=== PATIENT | female | born 1990 | race Caucasian/White ===

== ENCOUNTER 2018-05-27 12:07 | Emergency (ER) | payer MEDICAID ==
[~2018-05-27] VITALS: Ht 162.6 cm; Wt 58.4 kg
[2018-05-27 12:35] VITALS: BP 117/70
[2018-05-27] MEDS ORDERED: ACET1TAB12 PO (14:19)
[2018-05-27] MEDS ORDERED: CLIN300C85 PO (14:19)
== END 2018-05-27 15:10 | disposition home or self-care (01) ==
LOC: ER 12:08
DX: K08.89 Other specified disorders of teeth and supporting structures (principal); F17.200 Nicotine dependence, unspecified, uncomplicated; Z88.0 Allergy status to penicillin; Z88.5 Allergy status to narcotic agent; Z79.2 Long term (current) use of antibiotics; Z79.899 Other long term (current) drug therapy
CPT/HCPCS: 99283

== ENCOUNTER 2018-09-12 18:10 | Emergency (ER) | payer MEDICAID ==
[~2018-09-12] VITALS: Ht 165.1 cm; Wt 60.3 kg
[~2018-09-12 18:10] MED LIST: ACET1TAB12 PO; CLIN300C85 PO
[2018-09-12 18:37] VITALS: BP 119/75
[2018-09-12 19:16] LABS: CLARITY,URINE CLEAR (Clear); COLOR,URINE YELLOW (Yellow); GLUCOSE, URINE NEGATIVE (Neg); KETONES,URINE NEGATIVE (Neg); LEUKOCYTE ESTERASE ,URINE NEGATIVE (Neg); NITRITES, URINE NEGATIVE (Neg); OCCULT BLOOD,URINE NEGATIVE (Neg); PROTEIN,URINE NEGATIVE (Neg); UROBILINOGEN,URINE 0.2 E.U/dL (0.2-1.0)
[2018-09-12 19:17] LABS: URINE HCG NEGATIVE (NEG)
[2018-09-12 19:19] LABS: UA COLLECTION TYPE CLN CATCH MIDSTREAM
== END 2018-09-12 20:26 | disposition left against medical advice (07) ==
LOC: ER 18:11
DX: R10.9 Unspecified abdominal pain (principal); Z53.21 Procedure and treatment not carried out due to patient leaving prior to being seen by health care provider
CPT/HCPCS: 81003; 81025

== ENCOUNTER 2018-11-27 17:09 | Emergency (ER) | payer MEDICAID ==
[~2018-11-27] VITALS: Ht 162.6 cm; Wt 54.5 kg
[~2018-11-27 17:09] MED LIST changes: +CLIN-96 PO; -CLIN300C85 PO
[2018-11-27 17:16] VITALS: BP 120/69
[2018-11-27] MEDS ORDERED: CEPH-572 PO (18:11)
[2018-11-27] MEDS ORDERED: SULF1TAB49 PO (18:11)
== END 2018-11-27 18:25 | disposition home or self-care (01) ==
LOC: ER 17:10
DX: L02.416 Cutaneous abscess of left lower limb (principal); F11.90 Opioid use, unspecified, uncomplicated; Z88.0 Allergy status to penicillin; Z88.5 Allergy status to narcotic agent; Z79.899 Other long term (current) drug therapy; Z56.0 Unemployment, unspecified
CPT/HCPCS: 99283

== ENCOUNTER 2019-07-13 03:25 | Emergency (ER) | payer MEDICAID ==
[~2019-07-13] VITALS: Ht 162.6 cm; Wt 61.4 kg
[2019-07-13] MEDS ORDERED: diazepam 5mg tablet PO ONE (05:00)
[2019-07-13 05:20] LABS: BASOPHILS % (AUTO) 0.6 % (0-1); EOSINOPHILS # (AUTO) 0.2 X10'3 (0-0.9); EOSINOPHILS % (AUTO) 2.3 % (0-6); HEMATOCRIT 39.8 % (35.0-45.0); HEMOGLOBIN 13.4 g/dl (12.0-16.0); LYMPHOCYTES # (AUTO) 2.4 X10'3 (1.1-4.8); LYMPHOCYTES % (AUTO) 30.5 % (21-51); MEAN CORPUSCULAR HEMOGLOBIN 29.6 PG (27.0-31.0); MEAN CORPUSCULAR HGB CONC 33.6 g/dL (33.0-36.5); MEAN CORPUSCULAR VOLUME 88.3 FL (78-98); MEAN PLATELET VOLUME 6.8 FL (7.4-10.4); MONOCYTES # (AUTO) 0.7 X10'3 (0-0.9); MONOCYTES % (AUTO) 8.8 % (2-12); NEUTROPHILS # (AUTO) 4.4 X10'3 (1.8-7.7); NEUTROPHILS % (AUTO) 57.8 % (42-75); PLATELET COUNT 349 X10'3 (140-440); RED BLOOD COUNT 4.51 X10'6 (4.20-5.60); WHITE BLOOD COUNT 7.7 X10'3 (4.5-11.0)
[2019-07-13 05:33] LABS: HCG SERUM QL NEGATIVE
[2019-07-13 05:40] LABS: ALANINE AMINOTRANSFERASE 15 U/L (12-78); ALBUMIN 3.6 G/DL (3.4-5.0); ALKALINE PHOSPHATASE 71 IU/L (46-116); ANION GAP 7 (8-16); ASPARTATE AMINO TRANSFERASE 13 U/L (10-37); BILIRUBIN,TOTAL 0.2 MG/DL (0.1-1.0); BLOOD UREA NITROGEN 16 MG/DL (7-18); BUN/CREATININE RATIO 23.2 (6.6-38.0); CALCIUM 8.8 MG/DL (8.5-10.1); CHLORIDE 107 MMOL/L (99-107); CREATININE 0.69 MG/DL (0.40-0.90); GLUCOSE 98 MG/DL (70-104); POTASSIUM 3.8 MMOL/L (3.5-5.1); SODIUM 141 MMOL/L (135-145); TOTAL CARBON DIOXIDE 27.2 MMOL/L (24-32); TOTAL PROTEIN 7.1 G/DL (6.4-8.2); eGFR > 90 ML/MIN
[2019-07-13 05:42] LABS: ETHANOL < 0.010 GM/DL (0.0-0.010)
[2019-07-13] MEDS ORDERED: GABA-530 PO (06:02)
[2019-07-13] MEDS ORDERED: GABA100C PO (06:02)
[2019-07-13 06:23] VITALS: BP 106/49
--- NOTE | 2019-07-13 07:46 | NUR ---
Patients and guest given a meal, already had weather appropriate clothing. Given a taxi to the mission.
== END 2019-07-13 07:47 | disposition home or self-care (01) ==
LOC: ER 03:26
DX: R56.9 Unspecified convulsions (principal); F17.200 Nicotine dependence, unspecified, uncomplicated; F11.90 Opioid use, unspecified, uncomplicated; F10.99 Alcohol use, unspecified with unspecified alcohol-induced disorder; Z98.890 Other specified postprocedural states; Z88.0 Allergy status to penicillin; Z88.5 Allergy status to narcotic agent; Z79.899 Other long term (current) drug therapy; Y90.9 Presence of alcohol in blood, level not specified
CPT/HCPCS: 36415; 70450; 80053; 80320; 83735; 84703; 85025; 99284

== ENCOUNTER 2020-05-22 13:37 | Emergency (ER) | payer MEDICAID ==
[~2020-05-22 13:37] MED LIST changes: -CLIN-96 PO; +CLIN-97 PO; +GABA-530 PO; +GABA100C PO
[2020-05-22 13:48] VITALS: BP 122/77
[2020-05-22] MEDS ORDERED: azithromycin 250mg tablet PO ONE (14:55)
[2020-05-22] MEDS ORDERED: CefTRIAXone 250MG IM Kit w/LIDOcaine IM ONE (14:55)
[2020-05-22] MEDS ORDERED: VALA100031 PO (15:00)
== END 2020-05-22 15:50 | disposition home or self-care (01) ==
LOC: ER 13:37
DX: A64 Unspecified sexually transmitted disease (principal); B00.9 Herpesviral infection, unspecified; F11.90 Opioid use, unspecified, uncomplicated; Z86.69 Personal history of other diseases of the nervous system and sense organs; Z56.0 Unemployment, unspecified; Z88.0 Allergy status to penicillin; Z88.5 Allergy status to narcotic agent; Z79.2 Long term (current) use of antibiotics; Z79.899 Other long term (current) drug therapy
CPT/HCPCS: 36415; 87491; 87591; 96372; 99283; J0696

== ENCOUNTER 2020-08-27 22:44 | Emergency (ER) | payer MEDICAID ==
[~2020-08-27] VITALS: Ht 157.5 cm; Wt 63.6 kg
[~2020-08-27 22:44] MED LIST changes: +VALA100031 PO
--- NOTE | 2020-08-27 22:57 | NUR ---
patient here reports advanced ghonerria she [place] ([place]) while visiting mother had 7 pills left
[2020-08-28] MEDS ORDERED: VALA10002 PO (01:32)
[2020-08-28] MEDS ORDERED: CefTRIAXone 1000mg IM Kit (w/lidocaine diluent) IM ONE (01:40)
[2020-08-28] MEDS ORDERED: metroNIDAZOLE 500mg tablet PO ONE (01:40)
[2020-08-28] MEDS ORDERED: azithromycin 250mg tablet PO ONE (01:40)
[2020-08-28 02:15] VITALS: BP 122/67
== END 2020-08-28 02:10 | disposition home or self-care (01) ==
LOC: ER 22:45
DX: B00.9 Herpesviral infection, unspecified (principal); Z56.0 Unemployment, unspecified; F11.10 Opioid abuse, uncomplicated; F17.200 Nicotine dependence, unspecified, uncomplicated; Z87.81 Personal history of (healed) traumatic fracture; Z88.0 Allergy status to penicillin; Z88.5 Allergy status to narcotic agent; Z79.899 Other long term (current) drug therapy
CPT/HCPCS: 96372; 99284; J0696; 99283; J3490

== ENCOUNTER 2021-11-26 20:09 | Emergency (ER) | payer MEDICAID ==
[~2021-11-26] VITALS: Ht 167.6 cm; Wt 65.9 kg
[~2021-11-26 20:09] MED LIST changes: +VALA10002 PO
--- NOTE | 2021-11-26 20:15 | NUR ---
Called patient for triage not in [facility]. Told Registration going outside to her ride
--- NOTE | 2021-11-26 20:30 | NUR ---
patient have not returned to [facility].
--- NOTE | 2021-11-26 21:11 | NUR ---
Patient returned and brought back to room 16
[2021-11-26] MEDS ORDERED: IBUP-1986 PO (21:15)
[2021-11-26] MEDS ORDERED: DOXY-1 PO (21:15)
[2021-11-26] MEDS ORDERED: DOXYCYCLINE 100MG CAPSULE PO STA (21:16)
[2021-11-26 21:18] VITALS: BP 123/56
[2021-11-26] MEDS ORDERED: ibuprofen tablet 400 MG TABLET PO ONE (21:20)
== END 2021-11-26 21:38 | disposition home or self-care (01) ==
LOC: ER 20:09
DX: K02.9 Dental caries, unspecified (principal); K08.89 Other specified disorders of teeth and supporting structures; F11.90 Opioid use, unspecified, uncomplicated; Z86.69 Personal history of other diseases of the nervous system and sense organs; Z72.89 Other problems related to lifestyle; Z56.0 Unemployment, unspecified; Z88.0 Allergy status to penicillin; Z88.5 Allergy status to narcotic agent; Z79.2 Long term (current) use of antibiotics; Z79.899 Other long term (current) drug therapy
CPT/HCPCS: 99283